=== PATIENT | female | born 1985 | race Caucasian/White ===

== ENCOUNTER 2018-06-23 21:31 | Emergency (ER) | payer OTHER ==
[~2018-06-23] VITALS: Ht 144.8 cm; Wt 74.5 kg
[2018-06-23 23:02] LABS: HEMATOCRIT 37.6 % (36.0-46.0); HEMOGLOBIN 12.8 G/DL (11.9-15.5); MCH 31.7 PG (29.0-34.0); MCV 93.1 FL (83-99); PLATELET COUNT 286 K/uL (156-360); RBC DIS.WIDTH-CV 12.8 % (11.8-14.6); RBC DIS.WIDTH-SD 43.7 % (39-53); RED BLOOD COUNT 4.04 M/uL (3.80-5.20); WHITE BLOOD COUNT 10.1 K/uL (4.1-10.2)
[2018-06-23 23:09] LABS: INTER. NORMALIZED RATIO 0.9
[2018-06-23 23:11] LABS: CHLORIDE 113 mEq/L (99-109); POTASSIUM 3.4 mEq/L (3.7-5.4); SODIUM 140 mEq/L (136-147)
[2018-06-23 23:12] LABS: PTT 24.6 SEC (25-37)
[2018-06-23 23:13] LABS: GLUCOSE 108 mg/dL (70-99)
[2018-06-23 23:17] LABS: CREATININE 0.8 mg/dL (0.6-1.3); GFR ESTIMATE (CALCULATED) > 59 mL/min/
[2018-06-23 23:18] LABS: UREA NITROGEN (BUN) 13 mg/dL (9-23)
[2018-06-24 00:43] VITALS: BP 132/80
== END 2018-06-24 00:50 | disposition home or self-care (01) ==
LOC: EME 21:31
PROVIDERS: Physician Assistant
DX: M79.604 Pain in right leg (principal); E87.6 Hypokalemia; F32.9 Major depressive disorder, single episode, unspecified; E78.5 Hyperlipidemia, unspecified; F41.9 Anxiety disorder, unspecified; G80.9 Cerebral palsy, unspecified; Z88.2 Allergy status to sulfonamides; Z88.8 Allergy status to other drugs, medicaments and biological substances
CPT/HCPCS: 80048; 85027; 85610; 85730; 93971; 99281; 99284

== ENCOUNTER 2018-06-25 10:51 | Emergency (ER) | payer OTHER ==
[~2018-06-25] VITALS: Ht 144.8 cm; Wt 77.2 kg
[2018-06-25 13:24] LABS: BASOPHIL (%) 0.5 % (0-1); BASOPHIL COUNT 0.1 K/uL (0-0.1); EOSINOPHIL (%) 1.1 % (0-5); EOSINOPHIL COUNT 0.1 K/uL (0-0.3); HEMATOCRIT 42.3 % (36.0-46.0); HEMOGLOBIN 14.1 G/DL (11.9-15.5); IMMATURE GRANULOCYTE (%) 0.3 % (0.0-0.7); LYMPHOCYTE (%) 26.4 % (15-42); LYMPHOCYTE COUNT 2.7 K/uL (1.0-2.8); MCH 31.5 PG (29.0-34.0); MCHC 33.3 G/DL (30.0-36.0); MCV 94.4 FL (83-99); MONOCYTE COUNT 0.7 K/uL (0-0.8); NEUTROPHIL (%) 64.7 % (45-76); NEUTROPHIL COUNT 6.6 K/uL (1.8-6.4); PLATELET COUNT 308 K/uL (156-360); RBC DIS.WIDTH-CV 12.9 % (11.8-14.6); RBC DIS.WIDTH-SD 44.4 % (39-53); RED BLOOD COUNT 4.48 M/uL (3.80-5.20); WHITE BLOOD COUNT 10.2 K/uL (4.1-10.2)
[2018-06-25 13:35] LABS: CHLORIDE 110 mEq/L (99-109); POTASSIUM 3.8 mEq/L (3.7-5.4); SODIUM 139 mEq/L (136-147)
[2018-06-25 13:37] LABS: GLUCOSE 87 mg/dL (70-99)
[2018-06-25 13:41] LABS: CREATININE 0.7 mg/dL (0.6-1.3); GFR ESTIMATE (CALCULATED) > 59 mL/min/
[2018-06-25 13:42] LABS: UREA NITROGEN (BUN) 11 mg/dL (9-23)
[2018-06-25 13:49] LABS: QUANTITATIVE HCG < 4.0 MIU/ML
[2018-06-25 16:16] VITALS: BP 119/65
== END 2018-06-25 16:10 | disposition home or self-care (01) ==
LOC: EME 10:51
PROVIDERS: Family Medicine
DX: R53.1 Weakness (principal); Z96.89 Presence of other specified functional implants; G80.9 Cerebral palsy, unspecified; E78.5 Hyperlipidemia, unspecified; F32.9 Major depressive disorder, single episode, unspecified; F41.9 Anxiety disorder, unspecified
CPT/HCPCS: 74177; 80048; 84702; 85025; 99281; 99285